=== PATIENT | male | born 2000 | race Caucasian/White ===

== ENCOUNTER 2023-08-11 21:06 | Emergency (ER) | payer OTHER ==
[2023-08-11 22:26] LABS: #Eosinphils 0.3 thou/uL (0.0-0.7); #Monocytes 0.9 thou/uL (0.11-0.59); #Neutrophils 5.6 thou/uL (1.40-6.50); %Basophils 0.4 % (0.0-1.0); %Eosinophils 3.8 % (0.0-10.0); %Lymphocytes 22.6 % (21.0-51.0); %Monocytes 10.4 % (0.0-10.0); %Neutrophils 62.6 % (42.0-75.0); Hematocrit 39.1 % (42.0-52.0); Mean Corpuscular HGB CONC 35.8 g/dL (32.0-36.0); Mean Corpuscular Hemoglobin 32.5 pg (27.0-31.0); Mean Corpuscular Volume 90.7 fl (78.0-98.0); Mean Platelet Volume 9.4 fL (7.4-10.4); Platelet Count 331 10x3/uL (130-400); RBC Distribution Width 11.9 % (11.5-14.5); Red Blood Cell (RBC) Count 4.31 mill/uL (4.70-6.10); White Blood Cell (WBC) Count 8.9 10x3/uL (4.8-10.8)
[2023-08-11 22:49] LABS: Acetaminophen Less than 10 mcg/mL (10.0-30.0); Alcohol Less than 10.0 mg/dL (Less than 10); Salicylate Less than 8.0 mg/dL (15.0-30.0)
[2023-08-11 22:50] LABS: ALT (SGPT) 36 U/L (8-55); AST (SGOT) 22 U/L (5-34); Alkaline Phosphatase 68 U/L (40-110); Anion Gap 14 mmol/L (10-20); BUN (Urea Nitrogen) 15 mg/dL (8.9-20.6); Bilirubin, Total 0.4 mg/dL (0.2-1.2); CK (CPK) 207 U/L (30-200); Calc. Creatinine Clearance 0 mL/min (70-130); Calcium 9.7 mg/dL (7.8-10.44); Carbon Dioxide 26 mmol/L (22-29); Chloride 105 mmol/L (98-107); Estimated GFR 101; Globulin 2.3 g/dL (2.4-3.5); Glucose 95 mg/dL (70-105); Potassium 3.6 mmol/L (3.5-5.1); Protein, Total 7.3 g/dL (6.0-8.3); Sodium 141 mmol/L (136-145)
[2023-08-11 22:59] LABS: Troponin I Less than 0.010 ng/mL (< 0.028)
== END 2023-08-12 00:15 | disposition home or self-care (01) ==
LOC: ERS 21:06
DX: F19.129 Other psychoactive substance abuse with intoxication, unspecified (principal); R00.0 Tachycardia, unspecified; R03.0 Elevated blood-pressure reading, without diagnosis of hypertension
CPT/HCPCS: 36415; 71045; 80053; 80307; 82550; 84484; 85025; 93005; 96360